=== PATIENT | male | born 1955 | race Caucasian/White ===

== ENCOUNTER → 2021-05-29 | Outpatient (CLI) | payer OTHER ==
[~2021-05-29] MED LIST: FLECAINIDE ACE100 MG PO; HYDROCHLOROTH12.5 MG PO; LEVOTHYROXINE150 MCG PO; LISINOPRIL20 MG PO; OMEPRAZOLE20 M1 PO; PRAVASTATIN SOD40 MG PO; XARELTO20 MG PO
[2021-05-29 13:35] LABS: HEMOGLOBIN 13.1 gm/dl (14.0-17.5); RED BLOOD COUNT 4.74 M/UL (4.20-5.50); WHITE BLOOD COUNT 8.6 K/UL (4.5-11.0)
== END ==
LOC: OPSV2 12:17 → EDSTATUS 12:30 → OPSV2 12:30
PROVIDERS: Orthopaedic Surgery
DX: Z01.818 Encounter for other preprocedural examination (principal); M16.12 Unilateral primary osteoarthritis, left hip
CPT/HCPCS: 36415; 71046; 80048; 85027; 93005

== ENCOUNTER 2021-06-21 08:40 | Day surgery (SDC) | payer OTHER ==
[~2021-06-21] VITALS: Ht 162.6 cm; Wt 97.1 kg
[~2021-06-21 08:40] MED LIST changes: -HYDROCHLOROTH12.5 MG PO; -LISINOPRIL20 MG PO; -OMEPRAZOLE20 M1 PO; +OMEPRAZOLE20 MG PO
[2021-06-21 09:25] LABS: HEMOGLOBIN 12.6 gm/dl (14.0-17.5); RED BLOOD COUNT 4.67 M/UL (4.20-5.50)
[2021-06-21] MEDS ORDERED: ZOFRAN 4 MG TAB4 MG PO (11:11)
[2021-06-21] MEDS ORDERED: CYCLOBENZAPRINE10 MG PO (11:11)
[2021-06-21] MEDS ORDERED: ENDOCET 7.5-321 EACH PO (11:11)
[2021-06-21] MEDS ORDERED: LISINOPRIL20 MG PO (13:25)
[2021-06-21] MEDS ORDERED: HYDROCHLOROTH12.5 MG PO (13:25)
[2021-06-21] MEDS ORDERED: XARELTO 10 MG T10 MG GT (15:35)
[2021-06-22 02:55] LABS: HEMOGLOBIN 10.4 gm/dl (14.0-17.5); RED BLOOD COUNT 3.78 M/UL (4.20-5.50); WHITE BLOOD COUNT 10.5 K/UL (4.5-11.0)
[2021-06-22] MEDS ORDERED: NORVASC5 MG PO (12:09)
[2021-06-23 03:03] LABS: HEMOGLOBIN 9.2 gm/dl (14.0-17.5)
[2021-06-23 03:08] LABS: RED BLOOD COUNT 3.32 M/UL (4.20-5.50); WHITE BLOOD COUNT 14.5 K/UL (4.5-11.0)
[2021-06-23 03:39] LABS: BUN/CREATININE RATIO 20 (0-10)
== END 2021-06-23 12:35 | disposition home or self-care (01) ==
LOC: OR 08:40 → M/S 16:58 → OR 06-23 12:35
PROVIDERS: Orthopaedic Surgery
DX: M16.12 Unilateral primary osteoarthritis, left hip (principal); I48.91 Unspecified atrial fibrillation; I11.9 Hypertensive heart disease without heart failure; E78.5 Hyperlipidemia, unspecified; E66.9 Obesity, unspecified; E03.9 Hypothyroidism, unspecified; K21.9 Gastro-esophageal reflux disease without esophagitis; Z68.37 Body mass index [BMI] 37.0-37.9, adult; Z79.01 Long term (current) use of anticoagulants; Z79.899 Other long term (current) drug therapy; Z88.2 Allergy status to sulfonamides
CPT/HCPCS: 36415; 73501; 73502; 76000; 80048; 82565; 83605; 85027; 86850; 86900; 86901; 97116; 97116-GP-CQ; 97162; 97165; 97530; C1713; C1776; J0171; J0690; J1100; J2001; J2250; J2405; J2704; J2795; J3370; J7050; J7120